=== PATIENT | male | born 1990 | race African-American/Black ===

== ENCOUNTER 2017-10-24 01:34 | Emergency (ER) | payer OTHER ==
[2017-10-24 01:46] VITALS: BP 121/79; PULSE 60; TEMP 97; BMI 26.3
--- NOTE | 2017-10-24 01:55 | PDOC ---
History of Present Illness - General Chief Complaint: Nausea Stated Complaint: FEELING FUNNY Time Seen by Provider: 10/24/17 01:46 - History of Present Illness Initial Comments: 10/24/17 02:33 This 27-year-old man, otherwise healthy presents with one-week history of intermittent fatigue/lightheadedness/shortness of breath with exertion. He also has intermittent nausea but without vomiting. Despite this, he has been able to eat normally. Patient states that these symptoms began 8 days ago after he smoked marijuana. Patient states that he does not routinely smoke tobacco or marijuana but did so on this occasion. Patient fears that there was a toxin in the marijuana. The fatigue and lightheadedness occurs especially after physical exertion. [facility] and felt very fatigued afterwards. Patient denies recent febrile illness or recent travel. 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 Patient admitted that this was true: that he commonly goes to sleep at 4 AM and awakening at 7 AM to go to work. Patient does not have insomnia. He states that he would rather do other things such as "entertain women" rather than go to sleep pattern early hour. Patient has no history of anemia or other chronic illness. He states that he has not had asthma or other respiratory issues. He is on no medications and takes no supplements Past History - Past Medical History Allergies/Adverse Reactions: Allergies Allergy/AdvReac Type Severity Reaction Status Date / Time No Known Allergies Allergy Unverified 10/24/17 01:42 Home Medications: Ambulatory Orders NK [No Known Home Medication] 10/24/17 COPD: No - Surgical History Appendectomy: Yes - Suicide/Smoking/Psychosocial Hx Smoking History: Current every day smoker Number of Cigarettes Smoked Daily: 0 Information on smoking cessation initiated: Yes 'Breaking Loose' booklet given: 10/24/17 Drug/Substance Use Hx: Yes Substance Use Type: Marijuana Review of Systems - Review of Systems Able to Perform ROS?: Yes Comments:: 12 point review of systems is negative except for what is noted in the history of present illness *Physical Exam - Vital Signs Last Vital Signs Temp Pulse Resp BP Pulse Ox 97 F L 60 16 121/79 100 10/24/17 01:43 10/24/17 01:43 10/24/17 01:43 10/24/17 01:43 10/24/17 01:43 - Physical Exam Comments: GENERAL: Adult male, in no acute distress HEAD: Normal with no signs of trauma. EYES: PERRLA, EOMI, sclera anicteric, conjunctiva pink ENT: Ears normal, nares patent, oropharynx clear without exudates. moist mucous membranes. NECK: Normal range of motion, supple without lymphadenopathy, JVD, or masses. LUNGS: Breath sounds equal, clear to auscultation bilaterally. No wheezes, and no crackles. HEART:Regular rate and rhythm, normal S1 and S2 without murmur, rub or gallop. ABDOMEN:.normal bowel sounds No guarding,tenderness or rebound.No masses No distention. EXTREMITIES: Normal range of motion, no edema. No clubbing or cyanosis. No erythema, or tenderness. NEUROLOGICAL: Cranial nerves II through XII grossly intact. Normal speech. No focal neurological deficits. MUSCULOSKELETAL: Back non-tender to palpation, no CVA tenderness SKIN: Warm, Dry, normal turgor, no rashes or lesions noted. Progress Note - Progress Note Progress Note: This 27-year-old man, otherwise healthy, presents with recent fatigue, especially after exertion. 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 His lack of adequate sleep, he admits, is related to his active social life. Exam is normal. Patient is reassured that his symptoms are likely related to his self induce sleep deprivation. Further workup can be deferred , being performed if he continues to have symptoms after sleeping adequately. Patient asked for HIV testing. [facility] HIV testing performed: Negative Patient discharged with advice to sleep adequately each night; he should also make sure he checks plenty of water and eat regular meals. He continues to have fatigue/lightheadedness/shortness of breath with exertion, he should follow -up with his general doctor. If symptoms are severe, he should return to the ER *DC/Admit/Observation/Transfer Diagnosis at time of Disposition: Fatigue Qualifiers: Fatigue type: other Qualified Code(s): R53.83 - Other fatigue - Discharge Dispostion Disposition: HOME Condition at time of disposition: Stable - Referrals - Patient Instructions Printed Discharge Instructions: Sleep: Are You Getting Enough? Additional Instructions: Make sure you have at least 7 hours of sleep every night Eat regular meals and drink plenty of water Follow-up with your doctor within the next week Return to ER if you have persistent weakness, shortness of breath or develop vomiting/fever - Post Discharge Activity
== END 2017-10-24 03:58 | disposition home or self-care (01) ==
LOC: FER 01:34
DX: R53.83 Other fatigue (principal); F17.210 Nicotine dependence, cigarettes, uncomplicated
CPT/HCPCS: 36415; 87389; 99281-25

== ENCOUNTER 2018-03-17 14:33 | Emergency (ER) | payer OTHER ==
--- NOTE | 2018-03-17 14:49 | PDOC ---
History of Present Illness - General Stated Complaint: COUGH Time Seen by Provider: 03/17/18 14:34 History Source: Patient Exam Limitations: No Limitations - History of Present Illness Initial Comments: 03/17/18 14:44 27 yo M c/ no pmh p/w cough x 3 days. +sick contacts with family. Greenish productive cough. Occasionally wheezing. No smoking history. Denies fevers, chills. Reports coughs persistently throughout the day and night. Feels more tired than usual. However, no chest pain. Past History - Past Medical History Allergies/Adverse Reactions: Allergies Allergy/AdvReac Type Severity Reaction Status Date / Time No Known Allergies Allergy Verified 03/17/18 14:40 Home Medications: Ambulatory Orders Albuterol Sulfate Inhaler - [Ventolin HFA Inhaler -] 2 puff IH Q4H PRN #1 inhaler 03/17/18 Azithromycin 250 mg PO DAILY #6 tablet 03/17/18 Benzonatate [Tessalon Pearls -] 100 mg PO TID PRN #21 capsule 03/17/18 COPD: No - Surgical History Appendectomy: Yes - Suicide/Smoking/Psychosocial Hx Smoking History: Current every day smoker Number of Cigarettes Smoked Daily: 0 'Breaking Loose' booklet given: 10/24/17 Drug/Substance Use Hx: Yes Substance Use Type: Marijuana Review of Systems - Review of Systems Able to Perform ROS?: Yes Comments:: 03/17/18 14:44 GENERAL/CONSTITUTIONAL: [No fever or chills. No weakness. No weight change.] HEAD, EYES, EARS, NOSE AND THROAT: [No change in vision. No ear pain or discharge. No sore throat.] CARDIOVASCULAR: [No chest pain or shortness of breath.] RESPIRATORY: [No wheezing, or hemoptysis.] + cough GASTROINTESTINAL: [No nausea, vomiting, diarrhea or constipation. No rectal bleeding.] GENITOURINARY: [No dysuria, frequency, or change in urination.] MUSCULOSKELETAL: [No joint or muscle swelling or pain. No neck or back pain.] SKIN AND BREASTS: [No rash or easy bruising.] NEUROLOGIC: [No headache, vertigo, loss of consciousness, or loss of sensation.] PSYCHIATRIC: [No depression or anxiety.] ENDOCRINE: [No increased thirst. No abnormal weight change.] HEMATOLOGIC/LYMPHATIC: [No anemia, easy bleeding, or history of blood clots.] ALLERGIC/IMMUNOLOGIC: [No hives or skin allergy. No latex allergy.] *Physical Exam - Physical Exam Comments: 03/17/18 14:46 GENERAL: Awake, alert, and fully oriented, in no acute distress HEAD: No signs of trauma EYES: EOMI, sclera anicteric, conjunctiva clear ENT: Auricles normal inspection, hearing grossly normal, nares patent, oropharynx clear without exudates. Moist mucosa NECK: Normal ROM, supple LUNGS: Breath sounds equal, clear to auscultation bilaterally. No wheezes, and no crackles HEART: Regular rate and rhythm, normal S1 and S2, no murmurs, rubs or gallops ABDOMEN: Soft, nontender, normoactive bowel sounds. No guarding, no rebound. No masses EXTREMITIES: Normal range of motion, no edema. No clubbing or cyanosis. No cords, erythema, or tenderness NEUROLOGICAL: Cranial nerves II through XII grossly intact. Normal speech, normal gait SKIN: Warm, Dry, normal turgor, no rashes or lesions noted. Medical Decision Making - Medical Decision Making 03/17/18 14:47 Likely viral syndrome. However, given the greenish productive cough, will write a prescription for azithromycin. I advised the patient that this is likely viral and not to take azithromycin unless if he develops fever or persistent/worsening symptoms after 7 days. The patient will be given an albuterol pump and tessalon pearls for the cough and follow up with PMD. Pt verbalizes understanding and agrees with plan. I discussed the physical exam findings, ancillary test results and final diagnoses with the patient. I answered all of the patient's questions. The patient was satisfied with the care received and felt comfortable with the discharge plan and treatment plan. The patient will call their primary care physician within 24 hours to arrange follow-up and will return to the Emergency Department with any new, persistant or worsening symptoms. *DC/Admit/Observation/Transfer Diagnosis at time of Disposition: Viral syndrome - Discharge Dispostion Disposition: HOME Condition at time of disposition: Stable Decision to Admit order: No - Prescriptions Prescriptions: Albuterol Sulfate Inhaler - [Ventolin HFA Inhaler -] 2 puff IH Q4H PRN #1 inhaler PRN Reason: Cough Azithromycin 250 mg PO DAILY #6 tablet Benzonatate [Tessalon Pearls -] 100 mg PO TID PRN #21 capsule PRN Reason: Cough - Referrals - Patient Instructions Printed Discharge Instructions: DI for Viral Upper Respiratory Infection -- Adult Additional Instructions: Take 2 puffs of albuterol every 4 hours as needed for wheezing. For the cough, you may take a tablet of tessalon pearle every 8 hours as needed. If your cough is persistent for another week, please start taking the azithromycin as prescribed. Follow up with your doctor. - Post Discharge Activity Forms/Work/School Notes: Back to Work
[2018-03-17 14:55] VITALS: BP 119/72; PULSE 67; TEMP 98.4; BMI 27.7
== END 2018-03-17 15:04 | disposition home or self-care (01) ==
LOC: FER 14:33
DX: B34.9 Viral infection, unspecified (principal)
CPT/HCPCS: 99281-25

== ENCOUNTER 2018-08-22 01:53 | Emergency (ER) | payer SELFPAY | END 2018-08-22 02:21 | disposition home or self-care (01) | LOC: FER 01:53 ==

== ENCOUNTER 2020-04-24 00:23 | Emergency (ER) | payer BC ==
[2020-04-24] MEDS ORDERED: TOBRAMYCIN 0.3% OPHTH SOLN 5 ML BOTTLE OS ONE (00:25)
[2020-04-24 00:33] VITALS: BP 122/80; PULSE 73; TEMP 98; BMI 25.6
[2020-04-24] MEDS ORDERED: TOBRAMYCIN 0.3% OPHTH SOLN 5 ML BOTTLE ONE (00:34)
[2020-04-24] MEDS ORDERED: SULFAMETHOXAZOLE/TRIMETHOPRIM 800MG/160MG D.S. TABLET ONE (00:34)
[2020-04-24] MEDS ORDERED: SULFAMETHOXAZOLE/TRIMETHOPRIM 800MG/160MG D.S. TABLET PO ONE (00:39)
== END 2020-04-24 00:48 | disposition home or self-care (01) ==
LOC: FER 00:23
DX: H10.9 Unspecified conjunctivitis (principal)
CPT/HCPCS: 99283-25

== ENCOUNTER 2020-06-25 02:40 | Emergency (ER) | payer BC ==
[2020-06-25 02:46] VITALS: BP 123/81; PULSE 59; TEMP 97.9; BMI 27.6
[2020-06-25] MEDS ORDERED: SULFAMETHOXAZOLE/TRIMETHOPRIM 800MG/160MG D.S. TABLET ONE (02:52)
[2020-06-25] MEDS ORDERED: SULFAMETHOXAZOLE/TRIMETHOPRIM 800MG/160MG D.S. TABLET PO ONE (02:53)
[2020-06-25] MEDS ORDERED: DIPHTH,PERTUSS(ACELL),TET 0.5 ML DISP.SYRIN IM ONE ×2 (02:53→02:54)
== END 2020-06-25 03:07 | disposition home or self-care (01) ==
LOC: FER 02:40
PROC: 3E0234Z Introduction of Serum, Toxoid and Vaccine into Muscle, Percutaneous Approach (ICD-10-PCS; principal; 2020-06-25)
DX: R22.31 Localized swelling, mass and lump, right upper limb (principal)
CPT/HCPCS: 90715; 99284-25

== ENCOUNTER 2020-07-28 19:38 | Emergency (ER) | payer BC ==
[2020-07-28] MEDS ORDERED: ALBUTEROL SO4 HFA INHALER IH ONE (19:52)
[2020-07-28 19:55] VITALS: BP 116/75; PULSE 78; TEMP 98.7; BMI 26.9
== END 2020-07-28 20:02 | disposition home or self-care (01) ==
LOC: FER 19:38
DX: J30.2 Other seasonal allergic rhinitis (principal)
CPT/HCPCS: 99283-25

== ENCOUNTER 2020-09-18 00:09 | Emergency (ER) | payer BC ==
[2020-09-18] MEDS ORDERED: AZITHROMYCIN 500 MG TABLET PO ONE (00:16)
[2020-09-18 00:19] VITALS: BP 119/76; PULSE 82; TEMP 99.4; BMI 28.1
[2020-09-18] MEDS ORDERED: AZITHROMYCIN 250 MG TABLET ONE (00:21)
== END 2020-09-18 00:52 | disposition home or self-care (01) ==
LOC: FER 00:09
DX: R50.9 Fever, unspecified (principal); J20.9 Acute bronchitis, unspecified; R51.9 Headache, unspecified
CPT/HCPCS: 36415; 86618; 99283-25

== ENCOUNTER 2021-07-25 23:55 | Emergency (ER) | payer BC ==
[2021-07-26 00:13] VITALS: BMI 28.0
[2021-07-26] MEDS ORDERED: morphine CARPU-JECT 2 MG/1 ML DISP.SYRIN IVPUSH ONE (00:15)
[2021-07-26] MEDS ORDERED: SODIUM CHLORIDE 1,000 ML ONE (00:15)
[2021-07-26] MEDS ORDERED: ONDANSETRON 4 MG/2 ML VIAL IVPB ONE (00:15)
[2021-07-26] MEDS ORDERED: ONDANSETRON 4 MG/2 ML VIAL ONE (00:22)
[2021-07-26] MEDS ORDERED: morphine SULFATE 4 MG/ML VIAL ONE (00:22)
[2021-07-26 00:35] VITALS: BP 91/50; PULSE 62; TEMP 98.1
[2021-07-26 01:19] LABS: BASO % 0.5 % (0-2.0); EOS % 3.9 % (0-4.5); HEMATOCRIT 44.3 % (35.4-49); HEMOGLOBIN 14.8 GM/dL (11.7-16.9); LYMPH % 35.7 % (8-40); MCH 26.9 pg (25.7-33.7); MCHC 33.5 g/dl (32.0-35.9); MEAN CELL VOLUME 80.3 fl (80-96); MEAN PLT VOLUME 8.5 fl (7.5-11.1); MONO % 8.3 % (3.8-10.2); NEUT % 51.6 % (42.8-82.8); PLATELET COUNT 192 10^3/uL (134-434); RBC 5.52 M/mm3 (4.00-5.60); WHITE BLOOD COUNT 5.6 K/mm3 (4.0-10.0)
[2021-07-26 01:50] LABS: ALBUMIN 4.1 g/dl (3.4-5.0); BLOOD UREA NITROGEN 17.2 mg/dL (7-18); CALCIUM 8.8 mg/dL (8.5-10.1)
[2021-07-26 01:53] LABS: CREATININE 1.2 mg/dL (0.55-1.3)
[2021-07-26 01:55] LABS: BILIRUBIN,TOTAL 0.5 mg/dL (0.2-1); TOT PROT 7.3 g/dl (6.4-8.2)
== END 2021-07-26 02:08 | disposition home or self-care (01) ==
LOC: FER 23:55
PROC: 3E033NZ Introduction of Analgesics, Hypnotics, Sedatives into Peripheral Vein, Percutaneous Approach (ICD-10-PCS; principal; 2021-07-25)
PROC: 3E033GC Introduction of Other Therapeutic Substance into Peripheral Vein, Percutaneous Approach (ICD-10-PCS; 2021-07-25)
PROC: 3E0337Z Introduction of Electrolytic and Water Balance Substance into Peripheral Vein, Percutaneous Approach (ICD-10-PCS; 2021-07-25)
DX: R11.2 Nausea with vomiting, unspecified (principal); R19.7 Diarrhea, unspecified
CPT/HCPCS: 36415; 80053; 85025; 99284-25

== ENCOUNTER 2022-10-27 03:51 | Emergency (ER) | payer BC, OTHER ==
[2022-10-27 03:57] VITALS: BP 123/79; PULSE 62; RESP 16; TEMP 97.9; BMI 29.2
== END 2022-10-27 04:03 | disposition home or self-care (01) ==
LOC: FER 03:51
DX: J02.9 Acute pharyngitis, unspecified (principal)
CPT/HCPCS: 99282-25

== ENCOUNTER 2022-11-01 21:09 | Emergency (ER) | payer OTHER ==
[2022-11-01 21:23] VITALS: BP 137/61; PULSE 69; RESP 19; TEMP 98.7; BMI 29.2
== END 2022-11-01 22:00 | disposition home or self-care (01) ==
LOC: FER 21:09
DX: R05.3 Chronic cough (principal); R09.81 Nasal congestion; J02.9 Acute pharyngitis, unspecified; R53.83 Other fatigue; Z20.822 Contact with and (suspected) exposure to COVID-19
CPT/HCPCS: 71045-TC-FY; 87635; 99284-25